=== PATIENT | male | born 1940 | race Caucasian/White ===

== ENCOUNTER 2022-04-15 20:55 | Emergency (ER) | payer MEDICARE ==
[2022-04-15] MEDS ORDERED: Bacitracin Oint 1 GM U/D Packet TOP ONE (21:14)
[2022-04-15] MEDS ORDERED: Diphtheria,Pertussis(Acell),Tetanus Vaccine 0.5 ML Syringe IM ONE (22:01)
== END 2022-04-15 22:35 | disposition home or self-care (01) ==
LOC: JP.ED 20:55
DX: S00.83XA Contusion of other part of head, initial encounter (principal); S00.81XA Abrasion of other part of head, initial encounter; G31.84 Mild cognitive impairment of uncertain or unknown etiology; Z79.82 Long term (current) use of aspirin; Z79.899 Other long term (current) drug therapy; W18.30XA Fall on same level, unspecified, initial encounter
CPT/HCPCS: 70450; 90471; 90715; 99284-25